=== PATIENT | female | born 1990 | race Caucasian/White ===

== ENCOUNTER 2019-06-15 15:08 | Emergency (ER) | payer SELFPAY ==
[2019-06-15 15:23] VITALS: BP 97/55; PULSE 107; TEMP 99.6; BMI 25.4
[2019-06-15] MEDS ORDERED: ACETAMINOPHEN 500 MG TABLET (FP) PO ONE (16:13)
[2019-06-15] MEDS ORDERED: PENICILLIN G BENZATHINE 1,200,000 UNIT/2 ML PFS IM ONE ×2 (16:36→16:43)
[2019-06-15] MEDS ORDERED: DEXAMETHASONE LIQUID 0.5 MG/5 ML PO ONE (16:36)
--- NOTE | 2019-06-15 16:38 | PDOC ---
History of Present Illness - General Chief Complaint: Cold Symptoms Stated Complaint: COLD SYMPTOMS Time Seen by Provider: 06/15/19 15:54 - History of Present Illness Initial Comments: 06/15/19 16:36 29-year-old female without comorbidities presents for evaluation of malaise constitutional symptoms fever and sore throat x1 day Past History - Past Medical History Allergies/Adverse Reactions: Allergies Allergy/AdvReac Type Severity Reaction Status Date / Time No Known Allergies Allergy Verified 06/15/19 15:17 Home Medications: Ambulatory Orders Acetaminophen [Tylenol] 650 mg PO QID PRN 06/15/19 - Psycho Social/Smoking Cessation Hx Smoking History: Never smoked Review of Systems - Review of Systems Constitutional: Yes: Chills, Fever, Malaise, Night Sweats HEENTM: Yes: Throat Pain, Difficulty Swallowing *Physical Exam - Vital Signs Last Vital Signs Temp Pulse Resp BP Pulse Ox 99.6 F 107 H 22 H 97/55 L 100 06/15/19 15:18 06/15/19 15:18 06/15/19 15:18 06/15/19 15:18 06/15/19 15:18 - Physical Exam 06/15/19 16:36 HEAD: NC/AT EYES: Conjuntiva clear Ears: Canals and TM's normal NOSE: No d/c THROAT: Moist mucous membrances, oral pharanx erythemic with exudate, uvula midline NECK: Supple without adenopathy CARDIAC: S1 S2 LUNGS: CTA Full and Equal breath sounds ABDOMEN: Soft NT ND MS: Full ROM in all joints without edema NEUROLOGIC: No gross sensory or motor deficits, NVID SKIN: Normal color and temperature no lesions or rashes Medical Decision Making - Medical Decision Making 06/15/19 16:36 Rapid strep positive patient options discussed she would like Bicillin Discharge - Discharge Information Problems reviewed: Yes Clinical Impression/Diagnosis: Strep pharyngitis Condition: Stable Disposition: HOME - Admission No - Follow up/Referral Referrals: Floyd Montilla MD [Staff Physician] - - Patient Discharge Instructions Patient Printed Discharge Instructions: Strep Throat, DI for Strep Throat Additional Instructions: You were given a one-time injection today of penicillin which will treat strep throat. You were given also a long-acting steroid. You should not require any anti-inflammatories from this point forward you may take Tylenol for pain and perform warm salt water gargles 5-6 times a day. Return to the emergency room for worsening symptoms and without fail follow-up with your primary care physician in 1 to 2 days for further evaluation and treatment options. - Post Discharge Activity
[2019-06-15] MEDS ORDERED: ACETAMINOPHEN 500 MG TABLET (FP) ONE ×2 (16:41→16:50)
[2019-06-15] MEDS ORDERED: DEXAMETHASONE SOD PHOSPHATE 10 MG/1 ML VIAL ONE (16:41)
== END 2019-06-15 17:00 | disposition home or self-care (01) ==
LOC: JERFT 15:08
DX: J02.0 Streptococcal pharyngitis (principal); B95.0 Streptococcus, group A, as the cause of diseases classified elsewhere
CPT/HCPCS: 87880; 99281-25